=== PATIENT | female | born 1935 | race Two or more races ===

== ENCOUNTER 2017-08-11 10:08 | Emergency (ER) | payer MEDICARE, OTHER ==
[~2017-08-11] VITALS: Ht 152.4 cm; Wt 61.2 kg
== END 2017-08-11 11:58 | disposition home or self-care (01) ==
LOC: ED 10:08
DX: S61.411A Laceration without foreign body of right hand, initial encounter (principal); I10 Essential (primary) hypertension; Z23 Encounter for immunization; W22.8XXA Striking against or struck by other objects, initial encounter
CPT/HCPCS: 90471; 90715; 99282

== ENCOUNTER 2017-11-28 08:28 | Emergency (ER) | payer MEDICARE, OTHER ==
[~2017-11-28] VITALS: Ht 152.4 cm; Wt 61.2 kg
== END 2017-11-28 09:18 | disposition home or self-care (01) ==
LOC: ED 08:28
DX: B35.1 Tinea unguium (principal); I10 Essential (primary) hypertension
CPT/HCPCS: 99282

== ENCOUNTER 2017-12-05 02:49 | Emergency (ER) | payer MEDICARE, OTHER ==
[~2017-12-05] VITALS: Ht 152.4 cm; Wt 61.2 kg
--- NOTE | 2017-12-05 17:27 | EKG ---
[facility] [address] [place] [address] Signed Poor data quality, interpretation may be adversely affected Sinus tachycardia with premature atrial complexes Moderate voltage criteria for LVH, may be normal variant T wave abnormality, consider lateral ischemia Abnormal ECG No previous ECGs available Confirmed by JONAH MCKENZIE MD ([id number]) on 12/05/2017 5:27:04 PM Electronically Signed By: JONAH MCKENZIE MD 12/05/17 1727 PATIENT NAME: ANA MARÍA FUENTES Electrocardiogram DATE OF : 35 PHYSICIAN: JONAH MCKENZIE MD REPORT #: [id number] REPORT IS CONFIDENTIAL AND NOT TO BE RELEASED WITHOUT AUTHORIZATION
== END 2017-12-05 08:11 | disposition short-term general hospital (02) ==
LOC: ED 02:49
DX: I24.9 Acute ischemic heart disease, unspecified (principal); I11.0 Hypertensive heart disease with heart failure; I50.9 Heart failure, unspecified; N28.9 Disorder of kidney and ureter, unspecified
CPT/HCPCS: 71045; 80053; 83880; 84484; 85025; 85379; 93005; 93010; 96372; 96374; 96376; 99285; J1650

== ENCOUNTER 2018-08-05 09:36 | Emergency (ER) | payer MEDICARE, OTHER ==
[~2018-08-05] VITALS: Ht 152.4 cm; Wt 61.2 kg
[2018-08-05] MEDS ORDERED: HYDRALAZINE HCL25 MG PO (09:56)
[2018-08-05] MEDS ORDERED: IRON325 M1 PO (09:56)
[2018-08-05] MEDS ORDERED: CARVEDILOL12.5 MG PO (09:56)
[2018-08-05] MEDS ORDERED: ASPIRIN EC81 MG PO (09:57)
[2018-08-05] MEDS ORDERED: ISOSORBIDE MONO30 MG PO (09:57)
[2018-08-05] MEDS ORDERED: TORSEMIDE10 MG PO (09:57)
[2018-08-05] MEDS ORDERED: ATORVASTATIN CA40 MG PO (09:58)
[2018-08-05] MEDS ORDERED: VITAMIN D250000 UNIT PO (09:58)
[2018-08-05] MEDS ORDERED: ELIQUIS2.5 MG PO (09:58)
== END 2018-08-05 11:57 | disposition home or self-care (01) ==
LOC: ED 09:36
DX: K29.00 Acute gastritis without bleeding (principal); D64.9 Anemia, unspecified; I12.9 Hypertensive chronic kidney disease with stage 1 through stage 4 chronic kidney disease, or unspecified chronic kidney disease; N18.9 Chronic kidney disease, unspecified; Z79.899 Other long term (current) drug therapy; Z79.82 Long term (current) use of aspirin
CPT/HCPCS: 80053; 84484; 85025; 99284

== ENCOUNTER 2021-08-18 11:30 | Emergency (ER) | payer MEDICARE, OTHER ==
[~2021-08-18] VITALS: Ht 152.4 cm; Wt 40.8 kg
[~2021-08-18 11:30] MED LIST: ASPIRIN EC81 MG PO; ATORVASTATIN CA40 MG PO; CARVEDILOL12.5 MG PO; ELIQUIS2.5 MG PO; HYDRALAZINE HCL25 MG PO; IRON325 M1 PO; ISOSORBIDE MONO30 MG PO; TORSEMIDE10 MG PO; VITAMIN D250000 UNIT PO
[2021-08-18] MEDS ORDERED: AMLODIPINE BESYL5 MG PO (11:52)
[2021-08-18] MEDS ORDERED: POTASSIUM CHLO20 ME1 PO (15:07)
--- NOTE | 2021-08-18 20:25 | EKG ---
[facility] [address] [place] [address] Signed Sinus bradycardia Otherwise normal ECG When compared with ECG of 05-DEC-2017 02:57, premature atrial complexes are no longer present Vent. rate has decreased BY 62 BPM QRS duration has decreased ST elevation now present in Lateral leads T wave inversion no longer evident in Lateral leads Confirmed by ROBB CRANE MD ([id number] on 08/18/2021 8:25:38 PM Electronically Signed By: ROBB CRANE MD 08/18/212024 PATIENT NAME: ANA MARÍA FUENTES Electrocardiogram DATE OF : 35 PHYSICIAN: ROBB CRANE MD REPORT #: [id number] REPORT IS CONFIDENTIAL AND NOT TO BE RELEASED WITHOUT AUTHORIZATION
== END 2021-08-18 15:47 | disposition home or self-care (01) ==
LOC: ED 11:30
DX: E87.6 Hypokalemia (principal); R10.13 Epigastric pain; M19.90 Unspecified osteoarthritis, unspecified site; I13.0 Hypertensive heart and chronic kidney disease with heart failure and stage 1 through stage 4 chronic kidney disease, or unspecified chronic kidney disease; I50.9 Heart failure, unspecified; N18.4 Chronic kidney disease, stage 4 (severe); Z86.718 Personal history of other venous thrombosis and embolism; Z79.01 Long term (current) use of anticoagulants; Z79.899 Other long term (current) drug therapy
CPT/HCPCS: 80048; 80053; 81001; 83690; 85025; 93005; 93010; 96374; 96375; 99284-25; J0131; J2405; J7030

== ENCOUNTER 2022-09-01 09:10 | Emergency (ER) | payer MEDICARE, OTHER ==
[~2022-09-01] VITALS: Ht 152.4 cm; Wt 38.6 kg
[~2022-09-01 09:10] MED LIST changes: +AMLODIPINE BESYL5 MG PO; +POTASSIUM CHLO20 ME1 PO
[2022-09-01] MEDS ORDERED: TORSEMIDE10 MG PO (09:35)
[2022-09-01] MEDS ORDERED: FEROSUL325 MG PO (09:35)
[2022-09-01] MEDS ORDERED: AUGMENTIN 500-1 EACH PO (12:59)
== END 2022-09-01 14:21 | disposition home or self-care (01) ==
LOC: ED 09:10
DX: K52.9 Noninfective gastroenteritis and colitis, unspecified (principal); I13.0 Hypertensive heart and chronic kidney disease with heart failure and stage 1 through stage 4 chronic kidney disease, or unspecified chronic kidney disease; I50.9 Heart failure, unspecified; N18.4 Chronic kidney disease, stage 4 (severe); Z79.899 Other long term (current) drug therapy
CPT/HCPCS: 36415; 74176; 80053; 81003; 83690; 85025; 96365; 96366; 99284-25; A9270; J3480; J7030

== ENCOUNTER 2022-10-25 07:42 | Emergency (ER) | payer MEDICARE, OTHER ==
[~2022-10-25] VITALS: Ht 152.4 cm; Wt 38.6 kg
[~2022-10-25 07:42] MED LIST changes: +AUGMENTIN 500-1 EACH PO; +FEROSUL325 MG PO
[2022-10-25] MEDS ORDERED: ONDANSETRON ODT4 MG PO (10:14)
[2022-10-25] MEDS ORDERED: AUGMENTIN 500-1 EACH PO (10:14)
== END 2022-10-25 10:38 | disposition home or self-care (01) ==
LOC: ED 07:42
DX: K52.9 Noninfective gastroenteritis and colitis, unspecified (principal); I13.0 Hypertensive heart and chronic kidney disease with heart failure and stage 1 through stage 4 chronic kidney disease, or unspecified chronic kidney disease; N18.4 Chronic kidney disease, stage 4 (severe); I50.9 Heart failure, unspecified; Z79.899 Other long term (current) drug therapy
CPT/HCPCS: 36415; 51701; 74176; 80053; 81003; 83690; 85025; 99284-25; A9270; J7040